=== PATIENT | female | born 1940 | race Caucasian/White ===

== ENCOUNTER → 2016-05-05 | Outpatient (CLI) | payer MEDICARE, OTHER | LOC: RAD 20:02 | PROVIDERS: ATTEND Orthopaedic Surgery Sports Medicine | DX: M25.512 Pain in left shoulder (principal); M19.012 Primary osteoarthritis, left shoulder ==

== ENCOUNTER 2016-06-14 08:48 | Day surgery (SDC) | payer MEDICARE, OTHER ==
[~2016-06-14 08:48] MED LIST: PROPOFOL INJ 200 MG/20 ML VIAL IV ONE
[2016-06-14 10:11] VITALS: BP 137/42
--- NOTE | 2016-06-14 13:30 | Operative Report ---
Operative Report DATE OF SURGERY: 06/14/16 Operative Report: The risks, benefits and alternatives of the procedure including risks of bleeding, perforation requiring surgery are explained to the patient detail and informed consent is obtained. Patient is taken back to the endoscopy suite and placed in a left, lateral decubital position. Timeout is called. Propofol medication is administered. A rectal examination was done which did not reveal any masses, tears or fissures. An Olympus video scope was inserted into the patient's rectum ,the scope was then carefully advanced all the way to the cecum. Photo documentations obtained. Prep Is good. Cecum was identified by the usual anatomical landmarks including the ileocecal valve as well as the appendiceal office. The scope was then sequentially pulled back via the rest segments of the colon including the ascending colon, hepatic flexure, transverse colon, splenic flexure, descending colon and finally into the rectosigmoid portions of the colon. Retroflexion maneuvers performed. PREOPERATIVE DIAGNOSIS: Change of bowel habits, abdominal distention POSTOPERATIVE DIAGNOSIS: Right-sided inflammation status post biopsy rule out microscopic, lymphocytic, collagenous colitis OPERATION: Colonoscopy with biopsy SURGEON: LADONNA GLEZ ANESTHESIA: LMAC TISSUE REMOVED OR ALTERED: Right-sided colon mucosal specimens obtained COMPLICATIONS: None. ESTIMATED BLOOD LOSS: none. INTRAOPERATIVE FINDINGS: No masses, AVMs, diverticulosis noted PROCEDURE: Patient tolerated the procedure well. No immediate postprocedure complications are noted. Patient is discharged in good condition. Discharge date 06/14/2016. Discharge diet: Regular. Discharge activity: Regular. 2-3 week follow-up to discuss findings. Patient is instructed to call the office or proceed to the emergency room should there be any further problems or questions. We'll await on biopsies.
== END 2016-06-14 10:25 | disposition home or self-care (01) ==
LOC: END 08:48
PROVIDERS: ATTEND Internal Medicine Gastroenterology
PROC: 0DBF8ZX Excision of Right Large Intestine, Via Natural or Artificial Opening Endoscopic, Diagnostic (ICD-10-PCS; principal; 2016-06-14 11:00)
DX: R19.4 Change in bowel habit (principal); K62.89 Other specified diseases of anus and rectum; K52.9 Noninfective gastroenteritis and colitis, unspecified; M32.9 Systemic lupus erythematosus, unspecified; Z79.899 Other long term (current) drug therapy; Z79.82 Long term (current) use of aspirin; Z88.6 Allergy status to analgesic agent; Z88.1 Allergy status to other antibiotic agents; Z88.5 Allergy status to narcotic agent; Z88.8 Allergy status to other drugs, medicaments and biological substances; Z91.040 Latex allergy status
CPT/HCPCS: 45380; 88305 ×2; J2704; 810

== ENCOUNTER 2016-11-18 08:32 | Day surgery (SDC) | payer MEDICARE, OTHER ==
[~2016-11-18 08:32] MED LIST changes: +EPINEPHRINE INJ 1 MG/10 ML DISP.SYRIN ONE; +FENTANYL CITRATE INJ/PF 100 MCG/2 ML AMPUL ONE; +FLUMAZENIL INJ 0.5 MG/5 ML VIAL ONE; +GLYCOPYRROLATE INJ 0.4 MG/2 ML VIAL ONE; +MIDAZOLAM 2 MG/2 ML INJ ONE; +NALOXONE HCL INJ/PF 0.4 MG/1 ML SDV ONE; +ONDANSETRON HCL INJ/PF 4 MG/2 ML SDV ONE; -PROPOFOL INJ 200 MG/20 ML VIAL IV ONE
[2016-11-18 10:54] VITALS: BP 115/44
--- NOTE | 2016-11-18 13:48 | DISCHARGE SUMMARY E ---
Discharge Summary NAME: JOSE WARE : 1940 AGE: 76Y ADMITTED: 11/18/2016 DISCHARGED: 11/18/2016 HISTORY: Patient allergic to PHENOTHIAZINE, CODEINE, BENADRYL, IODINE, VICODIN, ASPIRIN, AND MACROBID. Underwent upper endoscopy today showing no evidence of ulcers, no evidence of malignancy. DISCHARGE PLAN: Continue . Stop aspirin for 3 days. Patient is on aspirin 81 mg. In spite of that, she is listed as allergic to aspirin. I will discus with her. Most likely she is not allergic to aspirin. Will stop her aspirin for 3 days because of the biopsy. FINAL DIAGNOSES: 1. Erosive gastritis. 2. Lupus. DICTATING PHYSICIAN: BRENDEN PATEL M.D. [id number] PHY#: [id number] ID: [id number] JOB#: [id number] ACCT: [id number] cc:BRENDEN PATEL M.D. >
--- NOTE | 2016-11-18 13:48 | OPERATIVE REPORT E ---
Operative Report NAME: JOSE WARE : 1940 AGE: 76Y DATE OF SURGERY: 11/18/2016 ROOM: PREOPERATIVE DIAGNOSES: 1. Reflux. 2. Abdominal pain. 3. Patient does have history of lupus, anxiety, hypertension. POSTOPERATIVE DIAGNOSES: 1. Erosive gastritis, mild. 2. Mild duodenitis. 3. Mild esophagitis. PROCEDURES: 1. Esophagoscopy. 2. Gastroscopy. 3. Duodenoscopy. SURGEON: BRENDEN PATEL M.D. TISSUE REMOVED OR ALTERED: Gastric biopsy H. pylori x2. ANESTHESIA: Versed 2, fentanyl 75. DESCRIPTION: Baby scope passed under guided vision, no difficulties. Esophagoscopy junction at 40. No hernia. No ulcers. Mild esophagitis. Gastroscopy: Few erosions in the antrum. Erosive gastritis. Biopsy obtained H. pylori. Duodenoscopy: Duodenal bulb looks bubbly, gas. Patient did have cholecystectomy. There were no ulcers. Descending duodenum normal. Patient tolerated the procedure well, discharged to her room in stable condition. CONCLUSION: 1. Mild duodenitis. 2. Erosive gastritis. 3. Mild esophagitis. 4. No ulcers, no malignancy. Just few erosions in the antrum. Patient does take aspirin and Dexilant. PLAN: Hold aspirin 3 days. Awaiting biopsy results. Continue the rest of her medication, methotrexate, , folic acid, and Xanax. DICTATING PHYSICIAN: BRENDEN PATEL M.D. [id number] PHY#: [id number] ID: [id number] JOB#: [id number] ACCT: [id number] cc:BRENDEN PATEL M.D. >
== END 2016-11-18 10:45 | disposition home or self-care (01) ==
LOC: END 08:32
PROVIDERS: ATTEND Specialist
PROC: 0DB68ZX Excision of Stomach, Via Natural or Artificial Opening Endoscopic, Diagnostic (ICD-10-PCS; principal; 2016-11-18 09:00)
DX: K21.0 Gastro-esophageal reflux disease with esophagitis (principal); K31.9 Disease of stomach and duodenum, unspecified; K29.80 Duodenitis without bleeding; I10 Essential (primary) hypertension; J45.909 Unspecified asthma, uncomplicated; F41.9 Anxiety disorder, unspecified; M32.9 Systemic lupus erythematosus, unspecified; Z79.899 Other long term (current) drug therapy
CPT/HCPCS: 43239; 88342 ×2; 88305 ×2; J2250; J3010; J2405; J0171; J2310; J3490

== ENCOUNTER 2017-09-16 13:43 | Emergency (ER) | payer MEDICARE, OTHER ==
--- NOTE | 2017-09-16 14:30 | ER Document Report ---
ED General - General Chief Complaint: Head Injury Stated Complaint: FALL HEAD INJURY Time Seen by Provider: 09/16/17 14:18 Mode of Arrival: Ambulatory Information source: Patient Notes: 76-year-old female presents after mechanical fall 3 days prior complaints of continued headache. Patient notes she struck the right frontal aspect denies any loss consciousness denies any neurological deficits TRAVEL OUTSIDE OF THE [place] IN LAST 30 DAYS: No - HPI Onset: Just prior to arrival Onset/Duration: Sudden Quality of pain: Achy Severity: Mild Pain Level: 1 Associated symptoms: Headache Exacerbated by: Denies Relieved by: Denies Similar symptoms previously: No Recently seen / treated by doctor: No - Related Data Allergies/Adverse Reactions: codeine [Codeine] Allergy (Severe, Verified 09/16/17 13:47) Hives diphenhydramine HCl [From Benadryl] Allergy (Severe, Verified 09/16/17 13:47) jitters,hyper iodine [Iodine] Allergy (Severe, Verified 09/16/17 13:47) throat closes latex [Latex] Allergy (Severe, Verified 09/16/17 13:47) throat closes,cannot breathe Phenothiazines Allergy (Severe, Verified 09/16/17 13:47) "crazy" prochlorperazine edisylate [From Compazine] Allergy (Severe, Verified 09/16/17 13:47) Delirium hydrocodone bitartrate [From Vicodin] Allergy (Unknown, Verified 09/16/17 13:47) Hyperactivity etanercept [From Enbrel] Allergy (Verified 09/16/17 13:47) Hives aspirin [Aspirin] Adverse Reaction (Unknown, Verified 09/16/17 13:47) GI upset with high doses nitrofurantoin [From Macrobid] Adverse Reaction (Unknown, Verified 09/16/17 13: 47) VOMITING decongestants Allergy (Severe, Uncoded 09/16/17 13:47) jitters Past Medical History - Social History Smoking Status: Never Smoker Cigarette use (# per day): No Chew tobacco use (# tins/day): No Smoking Education Provided: No Frequency of alcohol use: None Drug Abuse: None Family History: Reviewed & Not Pertinent Patient has suicidal ideation: No Patient has homicidal ideation: No - Past Medical History Cardiac Medical History: Reports: Hx Hypertension Denies: Hx Coronary Artery Disease, Hx Heart Attack Pulmonary Medical History: Reports: Hx Asthma, Hx Pneumonia Denies: Hx Bronchitis - HAS HAD BRONCHITIS A FEW TIMES, Hx COPD Neurological Medical History: Reports: Hx Migraine. Denies: Hx Cerebrovascular Accident, Hx Seizures Renal/ Medical History: Denies: Hx Peritoneal Dialysis GI Medical History: Denies: Hx Hepatitis, Hx Hiatal Hernia, Hx Ulcer Musculoskeltal Medical History: Reports Hx Arthritis - "LUPUS ARTHRITIS" Infectious Medical History: Denies: Hx Hepatitis Past Surgical History: Reports: Hx Appendectomy, Hx Cholecystectomy, Hx Gynecologic Surgery - bladder tact, Hx Hysterectomy, Hx Orthopedic Surgery. Denies: Hx Mastectomy, Hx Open Heart Surgery, Hx Pacemaker - Immunizations Hx Diphtheria, Pertussis, Tetanus Vaccination: Yes Hx Pneumococcal Vaccination: 10/26/13 Review of Systems - Review of Systems Notes: REVIEW OF SYSTEMS: CONSTITUTIONAL : Denies fever, chills, or sweats. Denies recent illness. EENT: Denies eye, ear, throat, or mouth pain or symptoms. Denies nasal or sinus congestion or discharge. Denies throat, tongue, or mouth swelling or difficulty swallowing. CARDIOVASCULAR: Denies chest pain. Denies palpitations or racing or irregular heart beat. Denies ankle edema. RESPIRATORY: Denies cough, cold, or chest congestion. Denies shortness of breath, difficulty breathing, or wheezing. GASTROINTESTINAL: Denies abdominal pain or distention. Denies nausea, vomiting , or diarrhea. Denies blood in vomitus, stools, or per rectum. Denies black, tarry stools. Denies constipation. GENITOURINARY: Denies difficulty urinating, painful urination, burning, frequency, blood in urine, or discharge. FEMALE GENITOURINARY: Denies vaginal bleeding, heavy or abnormal periods, irregular periods. Denies vaginal discharge or odor. MUSCULOSKELETAL: Denies back or neck pain or stiffness. Denies joint pain or swelling. SKIN: Denies rash, lesions or sores. HEMATOLOGIC : Denies easy bruising or bleeding. LYMPHATIC: Denies swollen, enlarged glands. NEUROLOGICAL: Admits to headache PSYCHIATRIC: Denies anxiety or stress. Denies depression, suicidal ideation, or homicidal ideation. ALL OTHER SYSTEMS REVIEWED AND NEGATIVE. PHYSICAL EXAMINATION: GENERAL: Well-appearing, well-nourished and in no acute distress. HEAD: Atraumatic, normocephalic. EYES: Pupils equal round and reactive to light, extraocular movements intact, conjunctiva are normal. ENT: Nares patent, oropharynx clear without exudates. Moist mucous membranes. NECK: Normal range of motion, supple without lymphadenopathy LUNGS: Breath sounds clear to auscultation bilaterally and equal. No wheezes rales or rhonchi. HEART: Regular rate and rhythm without murmurs ABDOMEN: Soft, nontender, nondistended abdomen. No guarding, no rebound. No masses appreciated. Female : deferred Musculoskeletal: Normal range of motion, no pitting or edema. No cyanosis. NEUROLOGICAL: Cranial nerves grossly intact. Normal speech, normal gait. Normal sensory, motor exams PSYCH: Normal mood, normal affect. SKIN: Warm, Dry, normal turgor, no rashes or lesions noted. Dictation was performed using [employer] recognition software Physical Exam - Vital signs Vitals: Temp Pulse Resp BP Pulse Ox 98.2 F 71 16 150/73 H 98 09/16/17 13:48 09/16/17 13:48 09/16/17 13:48 09/16/17 13:48 09/16/17 13:48 Course - Re-evaluation Re-evalutation: 09/16/17 14:29 Patient's neurological function is completely intact, she overall looks well, her family is not happy with her that she did not get evaluated for her previous head injury I will perform a CT at this is appropriate given her continued headache 09/16/17 15:08 CT head no no acute abnormality patient is completely intact neurologically will discharge her home with tramadol, she has no seizure disorder, she has allergies to codeine and is unable to take a Vicodin After performing a Medical Screening Examination, I estimate there is LOW risk for INCRANIAL HEMORRHAGE, or ISCHEMIC STROKE thus I consider the discharge disposition reasonable. I have reevaluated this patient multiple times and no significant life threatening changes are noted. The patient and I have discussed the diagnosis and risks, and we agree with discharging home with close follow-up with the understanding that symptoms and presentations can change. We also discussed returning to the Emergency Department immediately if new or worsening symptoms occur. We have discussed the symptoms which are most concerning (e.g., changing or worsening symptoms, new numbness or weakness, vomiting, fever) that necessitate immediate return. - Vital Signs Vital signs: Temp Pulse Resp BP Pulse Ox 98.2 F 71 16 150/73 H 98 09/16/17 13:48 09/16/17 13:48 09/16/17 13:48 09/16/17 13:48 09/16/17 13:48 - Diagnostic Test Radiology reviewed: Reports reviewed Discharge - Discharge Clinical Impression: Concussion Qualifiers: Encounter type: initial encounter Loss of consciousness presence/duration: without LOC Qualified Code(s): S06.0X0A - Concussion without loss of consciousness, initial encounter Head injury due to trauma Qualifiers: Encounter type: initial encounter Qualified Code(s): S09.90XA - Unspecified injury of head, initial encounter Condition: Stable Disposition: HOME, SELF-CARE Instructions: Head Injury Precautions ([facility]) Prescriptions: Tramadol HCl 50 mg PO Q8 #14 tablet Referrals: NIKOLE BENITES NP [Primary Care Provider] - Follow up as needed ZENON PARK MD [NO LOCAL MD] - Follow up in 3-5 days
--- NOTE | 2017-09-16 15:01 | RADIOLOGY REPORT (SQ) ---
EXAM DESCRIPTION: CT HEAD WITHOUT COMPLETED DATE/TIME: 09/16/2017 2:47 pm REASON FOR STUDY: head injury COMPARISON: 06/04/2015. TECHNIQUE: Axial images acquired through the brain without intravenous contrast. Images reviewed wi th bone, brain and subdural windows. Images stored on PACS. All CT scanners at this facility use dose modulation, iterative reconstruction, and/or weight based d osing when appropriate to reduce radiation dose to as low as reasonably achievable (ALARA). [facility]: Dose Right [facility]: CareDose [facility]: Dose Right [facility]: Teradose 4D [facility]: Smart Explore.To [employer] RADIATION DOSE: CT Rad equipment meets quality standard of care and radiation dose reduction techniq ues were employed. CTDIvol: 53.2 mGy. DLP: 1044 mGy-cm. mGy. LIMITATIONS: None. FINDINGS: VENTRICLES: Prominent. CEREBRUM: No masses. No hemorrhage. No midline shift. Areas of low density in the white matter mos t likely due to chronic micro-vascular ischemic change. No evidence for acute infarction. CEREBELLUM: No masses. No hemorrhage. No alteration of density. No evidence for acute infarction. EXTRAAXIAL SPACES: Mild age-related involutional change. No fluid collections. No masses. ORBITS AND GLOBE: No intra- or extraconal masses. Normal contour of globe without masses. CALVARIUM: No fracture. PARANASAL SINUSES: No fluid or mucosal thickening. SOFT TISSUES: No mass or hematoma. OTHER: No other significant finding. IMPRESSION: MILD CHRONIC CHANGES OF ATROPHY AND MICROVASCULAR ISCHEMIA. NO ACUTE PROCESS. EVIDENCE OF ACUTE STROKE: NO. TECHNICAL DOCUMENTATION: JOB ID: [id number] [place]-69 Quality ID # [id number]: Final reports with documentation of one or more dose reduction techniques (e.g., Au tomated exposure control, adjustment of the mA and/or kV according to patient size, use of iterative reconstruction technique) 2010 [employer]- All Rights Reserved Reading location - IP/workstation name: [email or web address]
[2017-09-16 15:25] VITALS: BP 148/72
== END 2017-09-16 15:27 | disposition home or self-care (01) ==
LOC: ER 13:43
DX: S06.0X0A Concussion without loss of consciousness, initial encounter (principal); R51 Headache; W19.XXXA Unspecified fall, initial encounter; Y92.009 Unspecified place in unspecified non-institutional (private) residence as the place of occurrence of the external cause; I10 Essential (primary) hypertension; J45.909 Unspecified asthma, uncomplicated; Z88.5 Allergy status to narcotic agent; Z88.8 Allergy status to other drugs, medicaments and biological substances; Z91.040 Latex allergy status; Z88.6 Allergy status to analgesic agent
CPT/HCPCS: 70450; 99284

== ENCOUNTER 2017-12-16 19:44 | Emergency (ER) | payer OTHER ==
[2017-12-16] MEDS ORDERED: IPRATROPIUM/ALBUTEROL 0.5-2.5 MG/3 ML AMPUL NEB ONE (20:13)
[2017-12-16] MEDS ORDERED: METHYLPREDNISOLONE INJ 125 MG/2 ML SDV IV ONE (20:13)
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
[2017-12-16 20:33] LABS: ABSOLUTE BASOPHILS # (AUTO) 0.1 10^3/uL (0.0-0.2); ABSOLUTE EOSINOPHILS # (AUTO) 0.3 10^3/uL (0.0-0.6); ABSOLUTE LYMPHOCYTES (AUTO) 2.2 10^3/uL (0.5-4.7); ABSOLUTE MONOCYTES (AUTO) 0.7 10^3/uL (0.1-1.4); ABSOLUTE NEUT (AUTO) 5.1 10^3/uL (1.7-8.2); BASOPHILS % (AUTO) 1.4 % (0-2); EOSINOPHILS % (AUTO) 3.2 % (0-6); HEMATOCRIT 35.3 % (36.0-47.0); HEMOGLOBIN 12.3 g/dL (12.0-15.5); LYMPHOCYTES % (AUTO) 25.8 % (13-45); MEAN CORPUSCULAR HEMOGLOBIN 34.4 pg (27.0-33.4); MEAN CORPUSCULAR HGB CONC 34.9 g/dL (32.0-36.0); MEAN CORPUSCULAR VOLUME 99 fl (80-97); MONOCYTES % (AUTO) 8.6 % (3-13); PLATELET COUNT 247 10^3/uL (150-450); RED BLOOD COUNT 3.58 10^6/uL (3.72-5.28); RED CELL DISTRIBUTION WIDTH 13.3 % (11.5-14.0); TOTAL CELLS COUNTED % (AUTO) 100 %; WHITE BLOOD COUNT 8.4 10^3/uL (4.0-10.5)
--- NOTE | 2017-12-16 20:53 | RADIOLOGY REPORT (SQ) ---
EXAM DESCRIPTION: SOFT TISSUE NECK COMPLETED DATE/TIME: 12/16/2017 8:42 pm REASON FOR STUDY: sore throat COMPARISON: None. NUMBER OF VIEWS: Two views. TECHNIQUE: AP and lateral radiographic image of the soft tissues of the neck. LIMITATIONS: None. FINDINGS: EPIGLOTTIS: Normal. Contour normal. Aryepiglottic folds normal. PREVERTEBRAL SOFT TISSUES: Normal. No soft tissue swelling. SUBGLOTTIC AREA: Normal. No narrowing. RETROPHARYNGEAL SPACE: Normal. No soft tissue masses. BONES: No acute findings. LUNG APICES: Normal. OTHER: No radiopaque foreign body. No other significant finding. IMPRESSION: NEGATIVE STUDY OF THE SOFT TISSUES OF THE NECK. TECHNICAL DOCUMENTATION: JOB ID: [id number] [place]-72 2010 [employer]- All Rights Reserved Reading location - IP/workstation name: [email or web address]
--- NOTE | 2017-12-16 20:54 | RADIOLOGY REPORT (SQ) ---
EXAM DESCRIPTION: CHEST 2 VIEWS COMPLETED DATE/TIME: 12/16/2017 8:42 pm REASON FOR STUDY: cough, sob COMPARISON: 04/19/2013 TECHNIQUE: Frontal and lateral radiographic views of the chest acquired. NUMBER OF VIEWS: Two view. LIMITATIONS: None. FINDINGS: LUNGS AND PLEURA: No pneumothorax. No consolidation or pleural effusion. MEDIASTINUM AND HILAR STRUCTURES: Stable. HEART AND VASCULAR STRUCTURES: Stable. BONES: No acute findings. HARDWARE: None in the chest. OTHER: No other significant finding. IMPRESSION: NO ACUTE FINDINGS. TECHNICAL DOCUMENTATION: JOB ID: [id number] [place]-72 2010 [employer]- All Rights Reserved Reading location - IP/workstation name: [email or web address]
[2017-12-16] MEDS ORDERED: ALBUTEROL SULFATE HFA (90 MCG/PUFF) 8 GM MDI (1 MDI/ER DISP) IH ONE (21:12)
[2017-12-16] MEDS ORDERED: AZITHROMYCIN 250 MG TABLET PO ONE (21:12)
[2017-12-16] MEDS ORDERED: CEFTRIAXONE INJ 1000 MG VIAL IV ONE (21:12)
[2017-12-16 21:26] LABS: ALANINE AMINOTRANSFERASE 24 U/L (9-52); ALBUMIN 3.7 g/dL (3.5-5.0); ALKALINE PHOSPHATASE 59 U/L (38-126); ANION GAP 11 (5-19); ASPARTATE AMINO TRANSFERASE 27 U/L (14-36); BILIRUBIN,DIRECT 0.2 mg/dL (0.0-0.4); BILIRUBIN,TOTAL 0.4 mg/dL (0.2-1.3); BLOOD UREA NITROGEN 24 mg/dL (7-20); CALCIUM 8.6 mg/dL (8.4-10.2); CARBON DIOXIDE 22 mmol/L (22-30); CHLORIDE 103 mmol/L (98-107); GLUCOSE 109 mg/dL (75-110); POTASSIUM 4.4 mmol/L (3.6-5.0); SODIUM 136.3 mmol/L (137-145); TOTAL PROTEIN 6.5 g/dL (6.3-8.2)
--- NOTE | 2017-12-16 22:02 | ER Document Report ---
ED General - General Chief Complaint: Shortness Of Breath Stated Complaint: COUGH Time Seen by Provider: 12/16/17 20:12 Mode of Arrival: Ambulatory TRAVEL OUTSIDE OF THE [place] IN LAST 30 DAYS: No - HPI Patient complains to provider of: Cough shortness of breath Notes: Patient coming the day for cough shortness of breath loss of voice and sore throat. States symptoms ongoing for the last few days. Patient states having sinus pressure with some sinus drainage. Patient states coughing purulent sputum as well. Patient does have a history of lupus states recently was taken off of her steroids. Patient was found in triage to be wheezing however from my evaluations are received a breathing treatment stating that she feels much better. Patient does have a hoarse voice squeaky at times consistent with laryngitis. Patient denies any fevers chills. Denies any recent antibiotics denies any recent travel. Patient otherwise is nontoxic upon my evaluation. - Related Data Allergies/Adverse Reactions: codeine [Codeine] Allergy (Severe, Verified 09/16/17 13:47) Hives diphenhydramine HCl [From Benadryl] Allergy (Severe, Verified 09/16/17 13:47) jitters,hyper iodine [Iodine] Allergy (Severe, Verified 09/16/17 13:47) throat closes latex [Latex] Allergy (Severe, Verified 09/16/17 13:47) throat closes,cannot breathe Phenothiazines Allergy (Severe, Verified 09/16/17 13:47) "crazy" prochlorperazine edisylate [From Compazine] Allergy (Severe, Verified 09/16/17 13:47) Delirium hydrocodone bitartrate [From Vicodin] Allergy (Unknown, Verified 09/16/17 13:47) Hyperactivity etanercept [From Enbrel] Allergy (Verified 09/16/17 13:47) Hives aspirin [Aspirin] Adverse Reaction (Unknown, Verified 09/16/17 13:47) GI upset with high doses nitrofurantoin [From Macrobid] Adverse Reaction (Unknown, Verified 09/16/17 13: 47) VOMITING decongestants Allergy (Severe, Uncoded 09/16/17 13:47) jitters Past Medical History - General Information source: Patient - Social History Smoking Status: Never Smoker Family History: Reviewed & Not Pertinent Patient has suicidal ideation: No Patient has homicidal ideation: No - Past Medical History Cardiac Medical History: Reports: Hx Hypertension Denies: Hx Coronary Artery Disease, Hx Heart Attack Pulmonary Medical History: Reports: Hx Asthma, Hx Pneumonia Denies: Hx Bronchitis - HAS HAD BRONCHITIS A FEW TIMES, Hx COPD Neurological Medical History: Reports: Hx Migraine. Denies: Hx Cerebrovascular Accident, Hx Seizures Renal/ Medical History: Denies: Hx Peritoneal Dialysis GI Medical History: Denies: Hx Hepatitis, Hx Hiatal Hernia, Hx Ulcer Musculoskeletal Medical History: Reports Hx Arthritis - "LUPUS ARTHRITIS" Infectious Medical History: Denies: Hx Hepatitis Past Surgical History: Reports: Hx Appendectomy, Hx Cholecystectomy, Hx Gynecologic Surgery - bladder tact, Hx Hysterectomy, Hx Orthopedic Surgery. Denies: Hx Mastectomy, Hx Open Heart Surgery, Hx Pacemaker - Immunizations Hx Diphtheria, Pertussis, Tetanus Vaccination: Yes Hx Pneumococcal Vaccination: 10/26/13 Review of Systems - Review of Systems Constitutional: Other - Cough sore throat sinus congestion difficulty breathing EENT: No symptoms reported Cardiovascular: No symptoms reported Respiratory: No symptoms reported Gastrointestinal: No symptoms reported Genitourinary: No symptoms reported Female Genitourinary: No symptoms reported Musculoskeletal: No symptoms reported Skin: No symptoms reported Hematologic/Lymphatic: No symptoms reported Neurological/Psychological: No symptoms reported -: Yes All other systems reviewed and negative Physical Exam - Vital signs Vitals: Temp Pulse Resp BP Pulse Ox 99.1 F 63 18 144/45 H 100 12/16/17 20:04 12/16/17 20:04 12/16/17 20:04 12/16/17 20:04 12/16/17 20:04 Interpretation: Normal - General General appearance: Appears well, Alert - HEENT Head: Normocephalic, Atraumatic Eyes: Normal Conjunctiva: Normal Cornea: Normal Extraocular movements intact: Yes Eyelashes: Normal Pupils: PERRL Pharynx: Post nasal drainage Neck: Normal - Respiratory Respiratory status: No respiratory distress Chest status: Nontender Breath sounds: Normal Chest palpation: Normal - Cardiovascular Rhythm: Regular Heart sounds: Normal auscultation Murmur: No - Abdominal Inspection: Normal Distension: No distension Bowel sounds: Normal Tenderness: Nontender Organomegaly: No organomegaly - Back Back: Normal, Nontender - Extremities General upper extremity: Normal inspection, Nontender, Normal color, Normal ROM , Normal temperature General lower extremity: Normal inspection, Nontender, Normal color, Normal ROM , Normal temperature, Normal weight bearing. No: Danielle's sign - Neurological Neuro grossly intact: Yes Cognition: Normal Orientation: AAOx4 [place] Coma Scale Eye Opening: Spontaneous [place] Coma Scale Verbal: Oriented [place] Coma Scale Motor: Obeys Commands Nat Coma Scale Total: 15 Speech: Normal Motor strength normal: LUE, RUE, LLE, RLE Sensory: Normal - Psychological Associated symptoms: Normal affect, Normal mood - Skin Skin Temperature: Warm Skin Moisture: Dry Skin Color: Normal Course - Re-evaluation Re-evalutation: 12/16/17 22:55 Chest x-ray is negative for any signs of pneumonia. Patient's physical examination consistent with a sinus infection with sinus drainage causing most of the patient's symptoms. Patient was started on Z-Evans for her sinus infection patient will be discharged home with an inhaler will hold off any steroids at this time. Patient agrees with treatment plan patient was discharged home. - Vital Signs Vital signs: Temp Pulse Resp BP Pulse Ox 99.1 F 63 18 144/45 H 100 12/16/17 20:04 12/16/17 20:04 12/16/17 20:04 12/16/17 20:04 12/16/17 20:04 - Laboratory Result Diagrams: 12/16/17 20:23 12/16/17 20:55 Laboratory results interpreted by me: 12/16/17 12/16/17 20:23 20:55 RBC 3.58 L Hct 35.3 L MCV 99 H MCH 34.4 H Sodium 136.3 L BUN 24 H Est GFR ( Amer) 56 L Est GFR (Non-Af Amer) 47 L Discharge - Discharge Clinical Impression: Laryngitis, Bronchitis Sinusitis Qualifiers: Sinusitis location: unspecified location Chronicity: unspecified Qualified Code (s): J32.9 - Chronic sinusitis, unspecified Condition: Good Disposition: HOME, SELF-CARE Instructions: Azithromycin ([facility]), Laryngitis ([facility]), Sinusitis ([facility]) Additional Instructions: Your evaluation today shows signs of sinus infection more likely causing your laryngitis and your cough and your symptoms. Please follow-up with your primary care physician. Take medication as prescribed. Use inhaler that we gave you here 2 puffs every 4 hours as needed for short of breath Prescriptions: Azithromycin [Zithromax] 250 mg PO DAILY #4 tablet Referrals: NIKOLE BENITES NP [Primary Care Provider] - Follow up in 3-5 days
[2017-12-16 22:54] VITALS: BP 136/50
== END 2017-12-16 22:45 | disposition home or self-care (01) ==
LOC: ER 19:44
DX: J04.0 Acute laryngitis (principal); J40 Bronchitis, not specified as acute or chronic; J32.9 Chronic sinusitis, unspecified; I10 Essential (primary) hypertension; Z88.6 Allergy status to analgesic agent; Z91.040 Latex allergy status; Z90.49 Acquired absence of other specified parts of digestive tract; Z90.710 Acquired absence of both cervix and uterus
CPT/HCPCS: 94640; 99285; 96375; 96365; 36415; 87070; 87880; 85025; 80053; 71046; 70360; A9270 ×2; J2930; J0696; J3490; J7620

== ENCOUNTER 2018-01-02 10:13 | Day surgery (SDC) | payer MEDICARE, OTHER ==
[~2018-01-02 10:13] MED LIST changes: -EPINEPHRINE INJ 1 MG/10 ML DISP.SYRIN ONE; -FENTANYL CITRATE INJ/PF 100 MCG/2 ML AMPUL ONE; -FLUMAZENIL INJ 0.5 MG/5 ML VIAL ONE; -GLYCOPYRROLATE INJ 0.4 MG/2 ML VIAL ONE; -MIDAZOLAM 2 MG/2 ML INJ ONE; -NALOXONE HCL INJ/PF 0.4 MG/1 ML SDV ONE; -ONDANSETRON HCL INJ/PF 4 MG/2 ML SDV ONE; +PROPOFOL INJ 200 MG/20 ML VIAL IV ONE
[2018-01-02] MEDS ORDERED: IPRATROPIUM/ALBUTEROL 0.5-2.5 MG/3 ML AMPUL NEB ONE (10:50)
--- NOTE | 2018-01-02 11:25 | Operative Report ---
Operative Report DATE OF SURGERY: 01/02/18 Operative Report: The risks benefits and alternatives of the procedure explained to the patient in detail and informed consent is obtained.A GIF Olympus video scope was inserted into the patient's mouth and hypopharynx, the esophagus is identified intubated and insufflated ,the scope was then advanced through the esophagus stomach and duodenum, retroflexion maneuver is done the esophagus stomach and first and second portions of the duodenum examined PREOPERATIVE DIAGNOSIS: Dyspepsia, gastroesophageal reflux disease POSTOPERATIVE DIAGNOSIS: Gastritis status post biopsy rule out Helicobacter pylori. Duodenitis OPERATION: EGD with biopsy SURGEON: LADONNA GLEZ ANESTHESIA: LMAC TISSUE REMOVED OR ALTERED: As noted above. COMPLICATIONS: None. ESTIMATED BLOOD LOSS: None. INTRAOPERATIVE FINDINGS: As noted above. PROCEDURE: Patient tolerated the procedure well. No immediate postprocedure complications are noted. Patient discharged in good condition. Discharge date 01/02/2018. Discharge diet: Regular. Discharge activity: Regular. 2-3-week follow-up to discuss findings. Patient is instructed call the office or proceed to the emergency room should there be any further problems or questions. Wait on the pathology.
[2018-01-02 12:12] VITALS: BP 151/52
== END 2018-01-02 12:07 | disposition home or self-care (01) ==
LOC: END 10:13
PROVIDERS: ATTEND Internal Medicine Gastroenterology
DX: K29.80 Duodenitis without bleeding (principal); K29.70 Gastritis, unspecified, without bleeding; K21.9 Gastro-esophageal reflux disease without esophagitis; Z79.82 Long term (current) use of aspirin; Z79.899 Other long term (current) drug therapy; Z88.6 Allergy status to analgesic agent; Z88.5 Allergy status to narcotic agent; Z91.040 Latex allergy status
CPT/HCPCS: 43239; 88305 ×2; 94640; J2704; A9270; 731; J7620

== ENCOUNTER → 2018-05-07 | Outpatient (CLI) | payer MEDICARE, OTHER ==
[2018-05-07 09:47] LABS: ALANINE AMINOTRANSFERASE 22 U/L (9-52); ALBUMIN 4.1 g/dL (3.5-5.0); ALKALINE PHOSPHATASE 60 U/L (38-126); ANION GAP 10 (5-19); ASPARTATE AMINO TRANSFERASE 28 U/L (14-36); BILIRUBIN,DIRECT 0.2 mg/dL (0.0-0.4); BILIRUBIN,TOTAL 0.5 mg/dL (0.2-1.3); BLOOD UREA NITROGEN 29 mg/dL (7-20); CALCIUM 9.4 mg/dL (8.4-10.2); CARBON DIOXIDE 28 mmol/L (22-30); CHLORIDE 101 mmol/L (98-107); CHOLESTEROL 155.13 mg/dL (0-200); GLUCOSE 101 mg/dL (75-110); PHOSPHORUS 4.4 mg/dL (2.5-4.5); POTASSIUM 4.7 mmol/L (3.6-5.0); SODIUM 138.9 mmol/L (137-145); TOTAL PROTEIN 6.4 g/dL (6.3-8.2); TRIGLYCERIDES 110 mg/dL (<150); URIC ACID 7.4 mg/dL (2.5-7.5)
[2018-05-07 09:57] LABS: DIRECT LDL 68 mg/dL (<100)
[2018-05-07 10:36] LABS: FREE T4 (FREE THYROXINE) 1.15 ng/dL (0.78-2.19)
[2018-05-07 10:50] LABS: THYROID STIMULATING HORMONE 0.09 uIU/mL (0.47-4.68)
[2018-05-09 12:38] LABS: CREATININE URINE 72.5 mg/dL (Not Estab.); MICROALBUMIN URINE 4.6 ug/mL (Not Estab.)
== END ==
LOC: LAB 08:45
PROVIDERS: ATTEND Internal Medicine Cardiovascular Disease
DX: N18.9 Chronic kidney disease, unspecified (principal); E78.5 Hyperlipidemia, unspecified; E03.9 Hypothyroidism, unspecified; M79.10 Myalgia, unspecified site
CPT/HCPCS: 36415; 80061; 80069; 80076; 82043; 82550; 82570; 83735; 84439; 84443; 84550

== ENCOUNTER → 2018-05-19 | Outpatient (CLI) | payer MEDICARE, OTHER ==
[2018-05-19 12:58] LABS: ANION GAP 7 (5-19); BLOOD UREA NITROGEN 37 mg/dL (7-20); CALCIUM 8.8 mg/dL (8.4-10.2); CARBON DIOXIDE 28 mmol/L (22-30); CHLORIDE 100 mmol/L (98-107); GLUCOSE 96 mg/dL (75-110); POTASSIUM 5.4 mmol/L (3.6-5.0); SODIUM 135.1 mmol/L (137-145)
[2018-05-20 10:37] LABS: CREATININE URINE 57.9 mg/dL (Not Estab.); MICROALBUMIN URINE 5.3 ug/mL (Not Estab.)
== END ==
LOC: LAB 11:55
PROVIDERS: ATTEND Internal Medicine Cardiovascular Disease
DX: I12.9 Hypertensive chronic kidney disease with stage 1 through stage 4 chronic kidney disease, or unspecified chronic kidney disease (principal); N18.3 Chronic kidney disease, stage 3 (moderate); E05.90 Thyrotoxicosis, unspecified without thyrotoxic crisis or storm
CPT/HCPCS: 36415; 80048; 82043; 82570; 84443

== ENCOUNTER → 2018-05-23 | Outpatient (CLI) | payer MEDICARE, OTHER ==
[2018-05-23 09:36] LABS: ANION GAP 12 (5-19); BLOOD UREA NITROGEN 41 mg/dL (7-20); CALCIUM 9.7 mg/dL (8.4-10.2); CARBON DIOXIDE 26 mmol/L (22-30); CHLORIDE 99 mmol/L (98-107); GLUCOSE 118 mg/dL (75-110); POTASSIUM 5.5 mmol/L (3.6-5.0); SODIUM 136.7 mmol/L (137-145)
== END ==
LOC: LAB 08:53
PROVIDERS: ATTEND Internal Medicine Cardiovascular Disease
DX: N18.3 Chronic kidney disease, stage 3 (moderate) (principal)
CPT/HCPCS: 36415; 80048

== ENCOUNTER → 2018-06-05 | Outpatient (CLI) | payer MEDICARE, OTHER ==
[2018-06-05 11:15] LABS: ANION GAP 7 (5-19); BLOOD UREA NITROGEN 27 mg/dL (7-20); CALCIUM 8.9 mg/dL (8.4-10.2); CARBON DIOXIDE 26 mmol/L (22-30); CHLORIDE 100 mmol/L (98-107); GLUCOSE 107 mg/dL (75-110); POTASSIUM 4.7 mmol/L (3.6-5.0); SODIUM 133.3 mmol/L (137-145)
== END ==
LOC: LAB 10:12
PROVIDERS: ATTEND Internal Medicine Cardiovascular Disease
DX: E87.5 Hyperkalemia (principal); N18.3 Chronic kidney disease, stage 3 (moderate); R06.02 Shortness of breath
CPT/HCPCS: 36415; 80048; 83880

== ENCOUNTER → 2018-06-11 | Outpatient (CLI) | payer MEDICARE, OTHER ==
[2018-06-11 11:24] LABS: APPEARANCE,URINE SLIGHTLY-CLOUDY; BILIRUBIN,URINE NEGATIVE (NEGATIVE); COLOR,URINE YELLOW; GLUCOSE, URINE NEGATIVE (NEGATIVE); KETONES,URINE NEGATIVE (NEGATIVE); LEUKOCYTE ESTERASE,URINE NEGATIVE (NEGATIVE); NITRITE,URINE NEGATIVE (NEGATIVE); PROTEIN,URINE NEGATIVE (NEGATIVE); UROBILINOGEN,URINE NEGATIVE mg/dL (<2.0)
== END ==
LOC: LAB 10:59
PROVIDERS: ATTEND Internal Medicine Cardiovascular Disease
DX: R30.0 Dysuria (principal)
CPT/HCPCS: 81001; 87086; 87088; 87186

== ENCOUNTER → 2018-07-03 | Outpatient (CLI) | payer MEDICARE, OTHER ==
[2018-07-03 10:38] LABS: HEMATOCRIT 34.6 % (36.0-47.0); HEMOGLOBIN 11.9 g/dL (12.0-15.5); MEAN CORPUSCULAR HEMOGLOBIN 32.9 pg (27.0-33.4); MEAN CORPUSCULAR HGB CONC 34.4 g/dL (32.0-36.0); MEAN CORPUSCULAR VOLUME 96 fl (80-97); PLATELET COUNT 214 10^3/uL (150-450); RED BLOOD COUNT 3.61 10^6/uL (3.72-5.28); RED CELL DISTRIBUTION WIDTH 13.7 % (11.5-14.0); WHITE BLOOD COUNT 6.6 10^3/uL (4.0-10.5)
[2018-07-03 10:58] LABS: ALANINE AMINOTRANSFERASE 18 U/L (9-52); ALBUMIN 3.6 g/dL (3.5-5.0); ALKALINE PHOSPHATASE 59 U/L (38-126); ANION GAP 5 (5-19); ASPARTATE AMINO TRANSFERASE 21 U/L (14-36); BILIRUBIN,DIRECT 0.2 mg/dL (0.0-0.4); BILIRUBIN,TOTAL 0.3 mg/dL (0.2-1.3); BLOOD UREA NITROGEN 24 mg/dL (7-20); CALCIUM 9.5 mg/dL (8.4-10.2); CARBON DIOXIDE 30 mmol/L (22-30); CHLORIDE 99 mmol/L (98-107); CHOLESTEROL 132.58 mg/dL (0-200); GLUCOSE 101 mg/dL (75-110); POTASSIUM 5.3 mmol/L (3.6-5.0); SODIUM 134.3 mmol/L (137-145); TOTAL PROTEIN 6.1 g/dL (6.3-8.2); TRIGLYCERIDES 116 mg/dL (<150)
[2018-07-03 11:09] LABS: DIRECT LDL 46 mg/dL (<100)
== END ==
LOC: LAB 09:48
PROVIDERS: ATTEND Internal Medicine Cardiovascular Disease
DX: E87.5 Hyperkalemia (principal); I10 Essential (primary) hypertension; R00.2 Palpitations; E78.2 Mixed hyperlipidemia; Z79.899 Other long term (current) drug therapy
CPT/HCPCS: 36415; 80048; 80061; 80076; 82306; 82607; 83036; 83525; 83735; 84550; 85027; 86141

== ENCOUNTER → 2018-08-03 | Outpatient (CLI) | payer MEDICARE, OTHER ==
[2018-08-03 09:10] LABS: HEMATOCRIT 35.3 % (36.0-47.0); HEMOGLOBIN 11.9 g/dL (12.0-15.5); MEAN CORPUSCULAR HEMOGLOBIN 32.6 pg (27.0-33.4); MEAN CORPUSCULAR HGB CONC 33.7 g/dL (32.0-36.0); MEAN CORPUSCULAR VOLUME 97 fl (80-97); PLATELET COUNT 226 10^3/uL (150-450); RED BLOOD COUNT 3.66 10^6/uL (3.72-5.28); RED CELL DISTRIBUTION WIDTH 13.4 % (11.5-14.0); WHITE BLOOD COUNT 6.2 10^3/uL (4.0-10.5)
[2018-08-03 09:33] LABS: CHLORIDE 102 mmol/L (98-107); POTASSIUM 5.8 mmol/L (3.6-5.0); SODIUM 136.7 mmol/L (137-145)
[2018-08-03 10:22] LABS: ANION GAP 13 (5-19); BLOOD UREA NITROGEN 29 mg/dL (7-20); CALCIUM 9.5 mg/dL (8.4-10.2); CARBON DIOXIDE 22 mmol/L (22-30); GLUCOSE 110 mg/dL (75-110); URIC ACID 6.2 mg/dL (2.5-7.5)
[2018-08-04 12:37] LABS: CREATININE URINE 67.3 mg/dL (Not Estab.); MICROALBUMIN URINE 5.1 ug/mL (Not Estab.)
== END ==
LOC: LAB 08:43
PROVIDERS: ATTEND Internal Medicine Cardiovascular Disease
DX: I12.9 Hypertensive chronic kidney disease with stage 1 through stage 4 chronic kidney disease, or unspecified chronic kidney disease (principal); N18.3 Chronic kidney disease, stage 3 (moderate); D63.1 Anemia in chronic kidney disease; E87.5 Hyperkalemia; E83.42 Hypomagnesemia; E88.81 Metabolic syndrome and other insulin resistance; Z79.899 Other long term (current) drug therapy
CPT/HCPCS: 36415; 80048; 82043; 82570; 83525; 83735; 84550; 85027

== ENCOUNTER → 2018-08-07 | Outpatient (CLI) | payer MEDICARE, OTHER ==
[2018-08-07 12:56] LABS: ANION GAP 7 (5-19); BLOOD UREA NITROGEN 31 mg/dL (7-20); CALCIUM 9.1 mg/dL (8.4-10.2); CARBON DIOXIDE 28 mmol/L (22-30); CHLORIDE 105 mmol/L (98-107); GLUCOSE 106 mg/dL (75-110); POTASSIUM 4.8 mmol/L (3.6-5.0); SODIUM 139.5 mmol/L (137-145)
== END ==
LOC: LAB 12:15
PROVIDERS: ATTEND Internal Medicine Cardiovascular Disease
DX: E87.5 Hyperkalemia (principal)
CPT/HCPCS: 36415; 80048

== ENCOUNTER → 2018-08-29 | Outpatient (CLI) | payer MEDICARE, OTHER ==
--- NOTE | 2018-08-30 09:02 | RADIOLOGY REPORT (SQ) ---
EXAM DESCRIPTION: MRI LT LOWER JOINT WITHOUT COMPLETED DATE/TIME: 08/29/2018 8:03 pm REASON FOR STUDY: M25.562 PAIN IN LEFT KNEE M25.562 PAIN IN LEFT KNEE COMPARISON: None. TECHNIQUE: Leftknee images acquired and stored on PACS. Multiplanar images include fat sensitive se quences as T1, water sensitive sequences as FST2 or STIR, cartilage sensitive sequences as FSPD, and gradient echo sequences. LIMITATIONS: None. FINDINGS: JOINT AND BURSAE: No significant effusion or bursitis. BONE CORTEX AND MARROW: Normal. ACL: Intact. No degeneration or ganglion cyst. PCL: Intact. MCL: Intact. Mild regional deep soft tissue edema. LCL: Intact. No periligamentous edema or fluid. MEDIAL MENISCUS: Tear posterior horn extending to the inferior articular surface. No significant ext rusion. LATERAL MENISCUS: No tears. No abnormal signal. MEDIAL COMPARTMENT: Cartilage preserved. No bone bruises or reactive marrow edema. No osteophytes. LATERAL COMPARTMENT: Cartilage preserved. No bone bruises or reactive marrow edema. No osteophytes. PATELLA: No chondromalacia. No subchondral cysts. Medial and lateral retinacula intact. EXTENSOR MECHANISM: Intact. Quadriceps and patella tendons normal. SOFT TISSUES: Trace Rajput's cyst. Appropriate vascular flow voids. OTHER: No other significant finding. IMPRESSION: 1. Medial meniscus posterior horn tear. TECHNICAL DOCUMENTATION: JOB ID: [id number]- All Rights Reserved Reading location - IP/workstation name: [email or web address]
== END ==
LOC: RAD 19:02
PROVIDERS: ATTEND Physician Assistant
DX: S83.242A Other tear of medial meniscus, current injury, left knee, initial encounter (principal); M25.562 Pain in left knee; X58.XXXA Exposure to other specified factors, initial encounter

== ENCOUNTER → 2018-09-01 | Outpatient (CLI) | payer MEDICARE, OTHER ==
[2018-09-01 12:25] LABS: ANION GAP 7 (5-19); BLOOD UREA NITROGEN 29 mg/dL (7-20); CARBON DIOXIDE 28 mmol/L (22-30); CHLORIDE 104 mmol/L (98-107); GLUCOSE 101 mg/dL (75-110); POTASSIUM 5.4 mmol/L (3.6-5.0); SODIUM 139.3 mmol/L (137-145)
== END ==
LOC: LAB 11:40
PROVIDERS: ATTEND Internal Medicine Cardiovascular Disease
DX: I10 Essential (primary) hypertension (principal); E87.5 Hyperkalemia; E83.42 Hypomagnesemia
CPT/HCPCS: 36415; 80048; 83735

== ENCOUNTER 2018-10-18 19:48 | Emergency (ER) | payer MEDICARE, OTHER ==
--- NOTE | 2018-10-18 20:27 | ER Document Report ---
HPI - HPI Pain Level: 3 Notes: 78-year-old female presents the ED for evaluation of facial contusion after falling approximately 3 days ago hitting her face on a table. Patient was seen by primary care provider today, wanted to be evaluated for possible nasal bridge fracture. Patient has not been seen by her nose and throat. No hqwo-wra-bduwlzh medication been tried. Eating and drinking without issues. States pain is 2 out of 10, throbbing achy. Denies any neuro changes or change in level of consciousness, denies any neck pain. No active bleeding, well- healing scab to bridge of nose. Denies fevers, chills, chest pain,palpitations, shortness of breath, dyspnea, nausea, vomiting, diarrhea, abdominal pain, hematuria,blurred vision, double vision, loss of vision, speech changes, headaches, wheezing, ST, URI, neck pain, weakness, bowel or bladder dysfunction, saddle anesthesia, numbness or tingling in bilateral upper or lower extremities equally, muscle paralysis, weakness in bilateral upper or lower extremities equally or rash. Denies IV drug use. - CONSTITUTIONAL Constitutional: DENIES: Fever, Chills - REPRODUCTIVE Reproductive: DENIES: : Past Medical History - General Information source: Patient - Social History Smoking Status: Never Smoker Family History: Reviewed & Not Pertinent Patient has suicidal ideation: No Patient has homicidal ideation: No - Past Medical History Cardiac Medical History: Reports: Hx Hypertension Denies: Hx Coronary Artery Disease, Hx Heart Attack Pulmonary Medical History: Reports: Hx Asthma, Hx Pneumonia Denies: Hx Bronchitis - HAS HAD BRONCHITIS A FEW TIMES, Hx COPD Neurological Medical History: Reports: Hx Migraine. Denies: Hx Cerebrovascular Accident, Hx Seizures Renal/ Medical History: Denies: Hx Peritoneal Dialysis GI Medical History: Denies: Hx Hepatitis, Hx Hiatal Hernia, Hx Ulcer Musculoskeletal Medical History: Reports Hx Arthritis - "LUPUS ARTHRITIS" Infectious Medical History: Denies: Hx Hepatitis Past Surgical History: Reports: Hx Appendectomy, Hx Cholecystectomy, Hx Gynecologic Surgery - bladder tact, Hx Hysterectomy, Hx Orthopedic Surgery. Denies: Hx Mastectomy, Hx Open Heart Surgery, Hx Pacemaker - Immunizations Hx Diphtheria, Pertussis, Tetanus Vaccination: Yes Hx Pneumococcal Vaccination: 10/26/13 Vertical Provider Document - CONSTITUTIONAL Agree With Documented VS: Yes Exam Limitations: No Limitations Notes: PHYSICAL EXAMINATION: GENERAL: Well-appearing, well-nourished and in no acute distress. HEAD: Atraumatic, normocephalic. EYES: Pupils equal round and reactive to light, extraocular movements intact, conjunctiva are normal. ENT: Nares patent, oropharynx clear without exudates. Moist mucous membranes. Scabbing to nasal bridge, no step-off noted, no deformity. No ecchymosis or step-off noted to bilateral orbits. NECK: Normal range of motion, supple without lymphadenopathy LUNGS: Breath sounds clear to auscultation bilaterally and equal. No wheezes rales or rhonchi. HEART: Regular rate and rhythm without murmurs ABDOMEN: Soft, nontender, nondistended abdomen. No guarding, no rebound. No masses appreciated. Female : deferred Musculoskeletal: Normal range of motion, no pitting or edema. No cyanosis. NEUROLOGICAL: Cranial nerves grossly intact. Normal speech, normal gait. Normal sensory, motor exams. PERRLA, EOMI. Full motor and sensory function throughout. Branch Banker + 2 equal bilaterally in BUE. Tongue midline. No pronator drift. No ataxia. Neck with APROM. Raises eyebrows. Strength is 5 out of 5 in bilateral upper and lower extremities equally.Speaks in full sentences. No weakness on one side. Romberg gait steady able to walk straight line. Able to recall 5 objects. PSYCH: Normal mood, normal affect. SKIN: Warm, Dry, normal turgor, no rashes or lesions noted. - INFECTION CONTROL TRAVEL OUTSIDE OF THE [place] IN LAST 30 DAYS: No Course - Re-evaluation Re-evalutation: 10/18/18 20:25 Afebrile vitals stable no distress. Nurse's notes reviewed. CT head and CT facial bones negative for any acute fractures, acute findings, SAH, ICH. Advised to apply triple antibiotic ointment to bridge of nose.follow up with pcp and ENTAfter performing a Medical Screening Examination, I estimate there is LOW risk for ACUTE GLAUCOMA, TEMPORAL ARTERITIS, MENINGITIS, INCRANIAL HEMORRHAGE, or ISCHEMIC STROKE thus I consider the discharge disposition reasonable. I have reevaluated this patient multiple times and no significant life threatening changes are noted. The patient and I have discussed the diagnosis and risks, and we agree with discharging home with close follow-up with the understanding that symptoms and presentations can change. We also discussed returning to the Emergency Department immediately if new or worsening symptoms occur. We have discussed the symptoms which are most concerning (e.g., changing or worsening symptoms, new numbness or weakness, vomiting, fever) that necessitate immediate return. 10/18/18 21:04 - Vital Signs Vital signs: Temp Pulse Resp BP Pulse Ox 98.5 F 79 20 150/72 H 96 10/18/18 19:59 10/18/18 19:59 10/18/18 19:59 10/18/18 19:59 10/18/18 19:59 Discharge - Discharge Clinical Impression: Nasal contusion, Closed head injury Condition: Stable Disposition: HOME, SELF-CARE Instructions: Injured Nose ([facility]), Head Injury Precautions ([facility]), Concussion ([facility]), Post-Concussion Syndrome ([facility]) Additional Instructions: T of your facial bones and head were negative, you do have a nasal contusion, follow-up with your nose and throat as needed as well as primary care provider. Apply triple antibiotic ointment as needed twice a day to nasal bridge for the next couple of days. Anastasia concussion protocol. return immediately for any new or worsening symptoms. Follow up with primary care provider, call tomorrow to make followup appointment. Referrals: SERGIO COLLINS PA [Primary Care Provider] - Follow up as needed MODESTO EMANUEL DO [ASSOCIATE] - Follow up as needed
--- NOTE | 2018-10-18 21:02 | RADIOLOGY REPORT (SQ) ---
CT BRAIN AND FACIAL BONES EXAM DATE: 10/18/2018 8:01 PM CDT HISTORY: Trauma. COMPARISON: 06/04/2015 TECHNIQUE: CT scan of the brain and facial bones without IV contrast. This exam was performed according to our departmental dose-optimization program, which includes automated exposure control, adjustment of the mA and/or kV according to patient size and/or use of iterative reconstruction technique. FINDINGS: BRAIN: The ventricles, cisterns, and sulci are age-appropriate. No evidence of acute infarction, intracranial hemorrhage, extra-axial fluid collection, or midline shift. No depressed skull fracture. FACIAL BONES: No acute facial bone fracture. Chronic deformity of the right nasal bone. No air-fluid levels are seen in the paranasal sinuses. The mastoid air cells are clear. No retrobulbar mass or hematoma is identified. IMPRESSION: 1. No acute intracranial hemorrhage. 2. No acute facial bone fracture.
[2018-10-18 21:13] VITALS: BP 165/77
== END 2018-10-18 21:10 | disposition home or self-care (01) ==
LOC: ER 19:48
DX: S00.33XA Contusion of nose, initial encounter (principal); R52 Pain, unspecified; W19.XXXA Unspecified fall, initial encounter; W22.03XA Walked into furniture, initial encounter; I10 Essential (primary) hypertension
CPT/HCPCS: 70450; 70486; 99283

== ENCOUNTER → 2018-11-02 | Outpatient (CLI) | payer MEDICARE, OTHER ==
[2018-11-02 10:09] LABS: HEMATOCRIT 35.1 % (36.0-47.0); MEAN CORPUSCULAR HEMOGLOBIN 32.8 pg (27.0-33.4); MEAN CORPUSCULAR HGB CONC 34.2 g/dL (32.0-36.0); MEAN CORPUSCULAR VOLUME 96 fl (80-97); PLATELET COUNT 166 10^3/uL (150-450); RED BLOOD COUNT 3.66 10^6/uL (3.72-5.28); RED CELL DISTRIBUTION WIDTH 13.6 % (11.5-14.0); WHITE BLOOD COUNT 6.1 10^3/uL (4.0-10.5)
[2018-11-02 12:08] LABS: ANION GAP 10 (5-19); BLOOD UREA NITROGEN 31 mg/dL (7-20); CALCIUM 9.4 mg/dL (8.4-10.2); CARBON DIOXIDE 26 mmol/L (22-30); CHLORIDE 101 mmol/L (98-107); GLUCOSE 103 mg/dL (75-110)
== END ==
LOC: LAB 09:49
PROVIDERS: ATTEND Internal Medicine Cardiovascular Disease
DX: D64.9 Anemia, unspecified (principal); N18.3 Chronic kidney disease, stage 3 (moderate); R07.89 Other chest pain; E66.9 Obesity, unspecified; E88.81 Metabolic syndrome and other insulin resistance
CPT/HCPCS: 36415; 80048; 83036; 85027; 86141

== ENCOUNTER → 2018-12-19 | Outpatient (CLI) | payer MEDICARE, OTHER ==
[2018-12-19 10:25] LABS: ANION GAP 8 (5-19); BLOOD UREA NITROGEN 26 mg/dL (7-20); CALCIUM 8.6 mg/dL (8.4-10.2); CARBON DIOXIDE 28 mmol/L (22-30); CHLORIDE 99 mmol/L (98-107); GLUCOSE 99 mg/dL (75-110); POTASSIUM 4.7 mmol/L (3.6-5.0)
== END ==
LOC: LAB 09:37
PROVIDERS: ATTEND Internal Medicine Cardiovascular Disease
DX: E87.5 Hyperkalemia (principal); R06.02 Shortness of breath; N18.3 Chronic kidney disease, stage 3 (moderate)
CPT/HCPCS: 36415; 80048; 83880

== ENCOUNTER → 2019-03-20 | Outpatient (CLI) | payer MEDICARE, OTHER ==
[2019-03-20 13:13] LABS: HEMOGLOBIN 12.2 g/dL (12.0-15.5); MEAN CORPUSCULAR HEMOGLOBIN 33.7 pg (27.0-33.4); MEAN CORPUSCULAR VOLUME 96 fl (80-97); PLATELET COUNT 203 10^3/uL (150-450); RED BLOOD COUNT 3.63 10^6/uL (3.72-5.28); RED CELL DISTRIBUTION WIDTH 13.2 % (11.5-14.0); WHITE BLOOD COUNT 7.2 10^3/uL (4.0-10.5)
[2019-03-20 13:22] LABS: ALBUMIN 4.1 g/dL (3.5-5.0); ANION GAP 8 (5-19); BLOOD UREA NITROGEN 36 mg/dL (7-20); CALCIUM 10.5 mg/dL (8.4-10.2); CARBON DIOXIDE 29 mmol/L (22-30); CHLORIDE 99 mmol/L (98-107); GLUCOSE 104 mg/dL (75-110); PHOSPHORUS 5.3 mg/dL (2.5-4.5); POTASSIUM 4.9 mmol/L (3.6-5.0)
== END ==
LOC: LAB 12:16
PROVIDERS: ATTEND Internal Medicine Cardiovascular Disease
DX: L93.0 Discoid lupus erythematosus (principal); R06.02 Shortness of breath; E66.9 Obesity, unspecified; I12.9 Hypertensive chronic kidney disease with stage 1 through stage 4 chronic kidney disease, or unspecified chronic kidney disease; N18.3 Chronic kidney disease, stage 3 (moderate); Z79.899 Other long term (current) drug therapy
CPT/HCPCS: 36415; 80069; 83036; 83880; 83970; 85027; 86141

== ENCOUNTER → 2019-04-18 | Outpatient (CLI) | payer MEDICARE, OTHER ==
[2019-04-18 13:26] LABS: ANION GAP 8 (5-19); BLOOD UREA NITROGEN 44 mg/dL (7-20); CALCIUM 10.4 mg/dL (8.4-10.2); CARBON DIOXIDE 29 mmol/L (22-30); CHLORIDE 98 mmol/L (98-107); GLUCOSE 87 mg/dL (75-110); POTASSIUM 5.5 mmol/L (3.6-5.0)
[2019-04-19 13:37] LABS: CREATININE URINE 77.6 mg/dL (Not Estab.); MICROALBUMIN URINE 3.5 ug/mL (Not Estab.)
== END ==
LOC: LAB 12:27
PROVIDERS: ATTEND Internal Medicine Cardiovascular Disease
DX: N18.3 Chronic kidney disease, stage 3 (moderate) (principal)
CPT/HCPCS: 36415; 80048; 82043; 82570

== ENCOUNTER → 2019-05-22 | Outpatient (CLI) | payer MEDICARE, OTHER ==
[2019-05-22 11:45] LABS: ANION GAP 8 (5-19); BLOOD UREA NITROGEN 27 mg/dL (7-20); CALCIUM 8.6 mg/dL (8.4-10.2); CARBON DIOXIDE 25 mmol/L (22-30); CHLORIDE 105 mmol/L (98-107); GLUCOSE 98 mg/dL (75-110); POTASSIUM 4.6 mmol/L (3.6-5.0)
== END ==
LOC: LAB 11:02
PROVIDERS: ATTEND Internal Medicine Cardiovascular Disease
DX: N18.3 Chronic kidney disease, stage 3 (moderate) (principal)
CPT/HCPCS: 36415; 80048

== ENCOUNTER → 2019-08-09 | Outpatient (CLI) | payer MEDICARE, OTHER ==
[2019-08-09 10:15] LABS: ANION GAP 7 (5-19); BLOOD UREA NITROGEN 36 mg/dL (7-20); CALCIUM 8.8 mg/dL (8.4-10.2); CARBON DIOXIDE 28 mmol/L (22-30); CHLORIDE 100 mmol/L (98-107); GLUCOSE 96 mg/dL (75-110); POTASSIUM 4.5 mmol/L (3.6-5.0)
[2019-08-09 13:44] LABS: ALBUMIN 3.9 g/dL (3.5-5.0); ALKALINE PHOSPHATASE 54 U/L (38-126); ASPARTATE AMINO TRANSFERASE 27 U/L (14-36); BILIRUBIN,TOTAL 0.3 mg/dL (0.2-1.3); CHOLESTEROL 142.19 mg/dL (0-200); TOTAL PROTEIN 6.3 g/dL (6.3-8.2); TRIGLYCERIDES 131 mg/dL (<150)
[2019-08-09 13:55] LABS: DIRECT LDL 56 mg/dL (<100)
[2019-08-10 10:36] LABS: MICROALBUMIN URINE 8.9 ug/mL (Not Estab.)
== END ==
LOC: OD 08:05
PROVIDERS: ATTEND Internal Medicine Cardiovascular Disease
DX: N18.3 Chronic kidney disease, stage 3 (moderate) (principal); E78.2 Mixed hyperlipidemia; R06.02 Shortness of breath; E88.01 Alpha-1-antitrypsin deficiency; Z79.899 Other long term (current) drug therapy
CPT/HCPCS: 36415; 80048; 80061; 80076; 82043; 82570; 83525; 83735; 83880

== ENCOUNTER → 2019-09-10 | Outpatient (CLI) | payer MEDICARE, OTHER ==
[2019-09-10 12:48] LABS: ANION GAP 7 (5-19); BLOOD UREA NITROGEN 48 mg/dL (7-20); CALCIUM 10.5 mg/dL (8.4-10.2); CARBON DIOXIDE 26 mmol/L (22-30); CHLORIDE 101 mmol/L (98-107); GLUCOSE 101 mg/dL (75-110); POTASSIUM 5.3 mmol/L (3.6-5.0)
[2019-09-11 11:37] LABS: CREATININE URINE 76.4 mg/dL (Not Estab.); MICROALBUMIN URINE 3.5 ug/mL (Not Estab.)
== END ==
LOC: OD 11:31
PROVIDERS: ATTEND Internal Medicine Cardiovascular Disease
DX: I12.9 Hypertensive chronic kidney disease with stage 1 through stage 4 chronic kidney disease, or unspecified chronic kidney disease (principal); N18.3 Chronic kidney disease, stage 3 (moderate); E87.5 Hyperkalemia; M32.9 Systemic lupus erythematosus, unspecified; E88.81 Metabolic syndrome and other insulin resistance; E66.9 Obesity, unspecified
CPT/HCPCS: 36415; 80048; 82043; 82570; 83525; 86141

== ENCOUNTER → 2019-09-26 | Outpatient (CLI) | payer MEDICARE, OTHER ==
--- NOTE | 2019-09-26 16:00 | RADIOLOGY REPORT (SQ) ---
EXAM DESCRIPTION: U/S RETROPERITON (RENAL/AORTA) IMAGES COMPLETED DATE/TIME: 09/26/2019 3:32 pm REASON FOR STUDY: N18.3 CHRONIC KIDNEY DISEASE, STAGE 3 (MODERATE) N18.3 CHRONIC KIDNEY DISEASE, ST AGE 3 (MODERATE) COMPARISON: None. TECHNIQUE: Dynamic and static grayscale images acquired of the kidneys and bladder and recorded on P ACS. Additional selected color Doppler and spectral images recorded. LIMITATIONS: None. FINDINGS: RIGHT KIDNEY: The right kidney measures 8.9 cm in length. Normal echogenicity. No edv id or suspicious masses. No hydronephrosis. No calcifications. LEFT KIDNEY: The left kidney measures 9.5 cm in length. Normal echogenicity. No solid or suspici ous masses. No hydronephrosis. No calcifications. BLADDER: No masses. OTHER FINDINGS: No other significant finding. IMPRESSION: NORMAL RENAL AND BLADDER ULTRASOUND. TECHNICAL DOCUMENTATION: JOB ID: [id number] 2010 [employer]- All Rights Reserved Reading location - IP/workstation name: [email or web address]
== END ==
LOC: RAD 14:57
PROVIDERS: ATTEND Internal Medicine Nephrology
DX: N18.3 Chronic kidney disease, stage 3 (moderate) (principal)
CPT/HCPCS: 76770

== ENCOUNTER → 2019-11-13 | Outpatient (CLI) | payer MEDICARE, OTHER ==
--- NOTE | 2019-11-14 15:13 | WOMENS IMAGING REPORT ---
EXAM DESCRIPTION: 3D SCREENING MAMMO BILAT IMAGES COMPLETED DATE/TIME: 11/13/2019 1:32 pm REASON FOR STUDY: Z12.31 ENCOUNTER FOR SCREENING MAMMOGRAM FOR MALIGNANT NEOPLASM OF BREAST Z12.31 ENCNTR SCREEN MAMMOGRAM FOR MALIGNANT NEOPLASM OF TIGIST COMPARISON: 04/21/2018 EXAM PARAMETERS: Standard craniocaudal and mediolateral oblique views of each breast recorded using digital acquisition and breast tomosynthesis. Read with the assistance of CAD. .[facility] - [employer] Version 9.2 LIMITATIONS: None. FINDINGS: Findings present which are benign by mammographic criteria. No suspicious masses, calcific ations or architectural distortion. Pertinent benign findings: Circumscribed nodular densities and benign-morphology calcifications seen bilaterally are unchanged in the study interval. Benign mammographic findings may include one or more of the following: Smooth masses, popcorn/rim/coa rse calcifications, asymmetries, post-procedure changes, and lesions with long-standing stability. IMPRESSION: BENIGN MAMMOGRAPHIC FINDINGS. BIRADS 2 BREAST DENSITY: c. The breasts are heterogeneously dense, which may obscure small masses. BIRAD: ASSESSMENT: 2 BENIGN FINDING(S) RECOMMENDATION: ROUTINE SCREENING COMMENT: The patient has been notified of the results by letter per MQSA requirements. Additional no tification policies are in place for contacting patient with suspicious or incomplete findings. Quality ID #225: The [employer] recommends an annual screening mammogram for women aged 40 years or over. This facility utilizes a reminder system to ensure that all patients receive reminder letters, and/or direct phone calls for appointments. This includes reminders for routine scr eening mammograms, diagnostic mammograms, or other Breast Imaging Interventions when appropriate. Th is patient will be placed in the appropriate reminder system. TECHNICAL DOCUMENTATION: FINDING NUMBER: (1) ASSESSMENT: (1) JOB ID: [id number] 2010 [employer]- All Rights Reserved Reading location - IP/workstation name: ASSISTANT [email or web address]
== END ==
LOC: WI 12:54
PROVIDERS: ATTEND Nurse Practitioner
DX: Z12.31 Encounter for screening mammogram for malignant neoplasm of breast (principal)
CPT/HCPCS: 77063; 77067

== ENCOUNTER → 2019-12-04 | Outpatient (CLI) | payer MEDICARE, OTHER ==
[2019-12-04 09:53] LABS: ANION GAP 8 (5-19); BLOOD UREA NITROGEN 31 mg/dL (7-20); CALCIUM 9.2 mg/dL (8.4-10.2); CARBON DIOXIDE 28 mmol/L (22-30); CHLORIDE 102 mmol/L (98-107); GLUCOSE 90 mg/dL (75-110); POTASSIUM 5.1 mmol/L (3.6-5.0)
[2019-12-05 09:01] LABS: INSULIN 21.5 uIU/mL (2.6-24.9)
== END ==
LOC: OD 08:09
PROVIDERS: ATTEND Internal Medicine Cardiovascular Disease
DX: R06.02 Shortness of breath (principal); I12.9 Hypertensive chronic kidney disease with stage 1 through stage 4 chronic kidney disease, or unspecified chronic kidney disease; N18.3 Chronic kidney disease, stage 3 (moderate); E83.42 Hypomagnesemia; M32.9 Systemic lupus erythematosus, unspecified; E88.81 Metabolic syndrome and other insulin resistance; Z79.899 Other long term (current) drug therapy
CPT/HCPCS: 36415; 80048; 83525; 83735; 83880; 86141

== ENCOUNTER → 2020-01-08 | Outpatient (CLI) | payer MEDICARE, OTHER ==
[2020-01-08 11:22] LABS: ANION GAP 10 (5-19); BLOOD UREA NITROGEN 31 mg/dL (7-20); CALCIUM 9.4 mg/dL (8.4-10.2); CARBON DIOXIDE 27 mmol/L (22-30); CHLORIDE 100 mmol/L (98-107); CHOLESTEROL 167.02 mg/dL (0-200); GLUCOSE 92 mg/dL (75-110); POTASSIUM 5.3 mmol/L (3.6-5.0); TRIGLYCERIDES 98 mg/dL (<150)
[2020-01-08 11:33] LABS: DIRECT LDL 49 mg/dL (<100)
== END ==
LOC: OD 09:03
PROVIDERS: ATTEND Internal Medicine Cardiovascular Disease
DX: I12.9 Hypertensive chronic kidney disease with stage 1 through stage 4 chronic kidney disease, or unspecified chronic kidney disease (principal); N18.30 Chronic kidney disease, stage 3 unspecified; E83.42 Hypomagnesemia; E78.2 Mixed hyperlipidemia; E87.5 Hyperkalemia; Z79.899 Other long term (current) drug therapy
CPT/HCPCS: 36415; 80048; 80061; 83735

== ENCOUNTER → 2020-01-30 | Outpatient (CLI) | payer MEDICARE, OTHER ==
[2020-01-30 10:06] LABS: ALBUMIN 3.8 g/dL (3.5-5.0); ALKALINE PHOSPHATASE 62 U/L (38-126); ANION GAP 8 (5-19); ASPARTATE AMINO TRANSFERASE 27 U/L (14-36); BILIRUBIN,DIRECT 0.3 mg/dL (0.0-0.4); BILIRUBIN,TOTAL 0.6 mg/dL (0.2-1.3); BLOOD UREA NITROGEN 37 mg/dL (7-20); CARBON DIOXIDE 27 mmol/L (22-30); CHLORIDE 99 mmol/L (98-107); CHOLESTEROL 114.39 mg/dL (0-200); GLUCOSE 96 mg/dL (75-110); POTASSIUM 5.1 mmol/L (3.6-5.0); TOTAL PROTEIN 6.2 g/dL (6.3-8.2); TRIGLYCERIDES 58 mg/dL (<150)
[2020-01-30 10:17] LABS: DIRECT LDL 34 mg/dL (<100)
[2020-01-30 10:29] LABS: CALCIUM 9.8 mg/dL (8.4-10.2)
== END ==
LOC: OD 08:46
PROVIDERS: ATTEND Internal Medicine Cardiovascular Disease
DX: R60.0 Localized edema (principal); I10 Essential (primary) hypertension; E78.2 Mixed hyperlipidemia; R06.00 Dyspnea, unspecified; Z79.899 Other long term (current) drug therapy
CPT/HCPCS: 36415; 80048; 80061; 80076; 83735; 83880

== ENCOUNTER 2020-03-24 15:17 | Emergency (ER) | payer MEDICARE, OTHER ==
[2020-03-24 15:51] VITALS: BP 129/52
--- NOTE | 2020-03-24 17:07 | ER Document Report ---
ED Medical Screen (RME) - General Chief Complaint: Palpitations Stated Complaint: COUGH Time Seen by Provider: 03/24/20 16:59 Primary Care Provider: GREGOR LOFTON MD [Primary Care Provider] - Follow up as needed Mode of Arrival: Wheelchair Information source: Patient Notes: 79-year-old female presents to ED for cough congestion she chest pain palpitations frequent falling. She states she called her primary care and they told her to come to the emergency room. She states she is dizzy all the time. She is alert oriented respirations regular nonlabored I have ordered chest pain protocol. She states her doctor also wanted to be checked for pneumonia I have ordered a chest x-ray. I have greeted and performed a rapid initial assessment of this patient. A co mprehensive ED assessment and evaluation of the patient, analysis of test results and completion of medical decision making process will be conducted by an additional ED providers. TRAVEL OUTSIDE OF THE [place] IN LAST 30 DAYS: No - Related Data Allergies/Adverse Reactions: codeine [Codeine] Allergy (Severe, Verified 01/02/18 10:22) Hives diphenhydramine HCl [From Benadryl] Allergy (Severe, Verified 01/02/18 10:22) jitters,hyper iodine [Iodine] Allergy (Severe, Verified 01/02/18 10:22) throat closes latex [Latex] Allergy (Severe, Verified 01/02/18 10:22) throat closes,cannot breathe Phenothiazines Allergy (Severe, Verified 01/02/18 10:22) "crazy" prochlorperazine edisylate [From Compazine] Allergy (Severe, Verified 01/02/18 10:22) Delirium hydrocodone bitartrate [From Vicodin] Allergy (Unknown, Verified 01/02/18 10:22) Hyperactivity etanercept [From Enbrel] Allergy (Verified 01/02/18 10:22) Hives aspirin [Aspirin] Adverse Reaction (Unknown, Verified 01/02/18 10:22) GI upset with high doses nitrofurantoin [From Macrobid] Adverse Reaction (Unknown, Verified 01/02/18 10:22) VOMITING decongestants Allergy (Severe, Uncoded 01/02/18 10:22) jitters Past Medical History - Past Medical History Cardiac Medical History: Reports: Hx Hypertension Denies: Hx Coronary Artery Disease, Hx Heart Attack Pulmonary Medical History: Reports: Hx Asthma, Hx Pneumonia Denies: Hx Bronchitis - HAS HAD BRONCHITIS A FEW TIMES, Hx COPD Neurological Medical History: Reports: Hx Migraine. Denies: Hx Cerebrovascular Accident, Hx Seizures Renal/ Medical History: Denies: Hx Peritoneal Dialysis GI Medical History: Denies: Hx Hepatitis, Hx Hiatal Hernia, Hx Ulcer Musculoskeltal Medical History: Reports Hx Arthritis - "LUPUS ARTHRITIS" Psychiatric Medical History: Reports: Hx Depression Infectious Medical History: Denies: Hx Hepatitis Past Surgical History: Reports: Hx Appendectomy, Hx Cholecystectomy, Hx Gynecologic Surgery - bladder tact, Hx Hysterectomy, Hx Orthopedic Surgery. Denies: Hx Mastectomy, Hx Open Heart Surgery, Hx Pacemaker - Immunizations Hx Diphtheria, Pertussis, Tetanus Vaccination: Yes Physical Exam - Vital signs Vitals: Temp Pulse Resp BP Pulse Ox 99.0 F 81 20 129/52 H 98 03/24/20 15:47 03/24/20 15:47 03/24/20 15:47 03/24/20 15:47 03/24/20 15:47 Course - Vital Signs Vital signs: Temp Pulse Resp BP Pulse Ox 99.0 F 81 20 129/52 H 98 03/24/20 15:47 03/24/20 15:47 03/24/20 15:47 03/24/20 15:47 03/24/20 15:47 Doctor's Discharge - Discharge Referrals: GREGOR LOFTON MD [Primary Care Provider] - Follow up as needed
[2020-03-24 17:51] LABS: ABSOLUTE BASOPHILS # (AUTO) 0.1 10^3/uL (0.0-0.2); ABSOLUTE EOSINOPHILS # (AUTO) 0.2 10^3/uL (0.0-0.6); ABSOLUTE LYMPHOCYTES (AUTO) 2.3 10^3/uL (0.5-4.7); ABSOLUTE MONOCYTES (AUTO) 0.7 10^3/uL (0.1-1.4); ABSOLUTE NEUT (AUTO) 6.1 10^3/uL (1.7-8.2); BASOPHILS % (AUTO) 1.3 % (0-2); EOSINOPHILS % (AUTO) 2.3 % (0-6); HEMATOCRIT 33.2 % (36.0-47.0); HEMOGLOBIN 11.7 g/dL (12.0-15.5); LYMPHOCYTES % (AUTO) 24.2 % (13-45); MEAN CORPUSCULAR HEMOGLOBIN 34.7 pg (27.0-33.4); MEAN CORPUSCULAR HGB CONC 35.2 g/dL (32.0-36.0); MEAN CORPUSCULAR VOLUME 99 fl (80-97); MONOCYTES % (AUTO) 7.8 % (3-13); PLATELET COUNT 261 10^3/uL (150-450); RED BLOOD COUNT 3.37 10^6/uL (3.72-5.28); RED CELL DISTRIBUTION WIDTH 13.9 % (11.5-14.0); SEGMENTED NEUTROPHILS % (AUTO) 64.4 % (42-78); TOTAL CELLS COUNTED % (AUTO) 100 %; WHITE BLOOD COUNT 9.5 10^3/uL (4.0-10.5)
[2020-03-24 18:18] LABS: ALBUMIN 3.8 g/dL (3.5-5.0); ALKALINE PHOSPHATASE 47 U/L (38-126); ANION GAP 7 (5-19); ASPARTATE AMINO TRANSFERASE 29 U/L (14-36); BILIRUBIN,DIRECT 0.2 mg/dL (0.0-0.4); BILIRUBIN,TOTAL 0.6 mg/dL (0.2-1.3); BLOOD UREA NITROGEN 38 mg/dL (7-20); CALCIUM 10.2 mg/dL (8.4-10.2); CARBON DIOXIDE 28 mmol/L (22-30); CHLORIDE 99 mmol/L (98-107); GLUCOSE 90 mg/dL (75-110); POTASSIUM 4.6 mmol/L (3.6-5.0); TOTAL PROTEIN 6.5 g/dL (6.3-8.2)
--- NOTE | 2020-03-24 19:01 | RADIOLOGY REPORT (SQ) ---
EXAM DESCRIPTION: CHEST 2 VIEWS IMAGES COMPLETED DATE/TIME: 03/24/2020 5:49 pm REASON FOR STUDY: Chest pain palpitation cough congestion COMPARISON: 12/29/2018 EXAM PARAMETERS: NUMBER OF VIEWS: two views TECHNIQUE: Digital Frontal and Lateral radiographic views of the chest acquired. RADIATION DOSE: NA LIMITATIONS: none FINDINGS: LUNGS AND PLEURA: No opacities, masses or pneumothorax. No pleural effusion. MEDIASTINUM AND HILAR STRUCTURES: No masses or contour abnormalities. HEART AND VASCULAR STRUCTURES: Heart normal size. No evidence for failure. BONES: No acute findings. HARDWARE: None in the chest. OTHER: No other significant finding. IMPRESSION: NO ACUTE RADIOGRAPHIC FINDING IN THE CHEST. TECHNICAL DOCUMENTATION: JOB ID: [id number] 2010 [employer] All Rights Reserved Reading location - IP/workstation name: [email or web address]
--- NOTE | 2020-03-25 08:58 | EKG REPORT ---
SEVERITY:- ABNORMAL ECG - SINUS RHYTHM : Confirmed by: Jean Carrillo MD 25-Mar-2020 08:57:53
== END 2020-03-24 19:20 | disposition left against medical advice (07) ==
LOC: ER 15:17
DX: R05 Cough (principal); R00.2 Palpitations; R29.6 Repeated falls; R07.9 Chest pain, unspecified; R42 Dizziness and giddiness; I10 Essential (primary) hypertension; J45.909 Unspecified asthma, uncomplicated; Z87.01 Personal history of pneumonia (recurrent); Z88.6 Allergy status to analgesic agent; Z88.5 Allergy status to narcotic agent; Z88.8 Allergy status to other drugs, medicaments and biological substances; Z91.040 Latex allergy status; Z53.20 Procedure and treatment not carried out because of patient's decision for unspecified reasons
CPT/HCPCS: 36415; 71046; 80053; 83735; 84484; 85025; 93005; 93010; 99281